=== PATIENT | female | born 1990 | race Caucasian/White ===

== ENCOUNTER 2016-05-07 19:56 | Emergency (ER) | payer OTHER | END 2016-05-08 03:25 | disposition home or self-care (01) | LOC: ER 19:56 | DX: S39.011A Strain of muscle, fascia and tendon of abdomen, initial encounter (principal); S73.101A Unspecified sprain of right hip, initial encounter; M25.531 Pain in right wrist; W10.9XXA Fall (on) (from) unspecified stairs and steps, initial encounter; Y92.009 Unspecified place in unspecified non-institutional (private) residence as the place of occurrence of the external cause; F17.210 Nicotine dependence, cigarettes, uncomplicated; Z79.899 Other long term (current) drug therapy; Z88.0 Allergy status to penicillin | CPT/HCPCS: 73110; 73130; 73502; 99070; 99283 ==

== ENCOUNTER 2016-07-02 11:00 | Emergency (ER) | payer OTHER | END 2016-07-02 11:44 | disposition home or self-care (01) | LOC: ER 11:00 | DX: M19.90 Unspecified osteoarthritis, unspecified site (principal); F41.9 Anxiety disorder, unspecified; F17.210 Nicotine dependence, cigarettes, uncomplicated; M06.9 Rheumatoid arthritis, unspecified; Z79.891 Long term (current) use of opiate analgesic; Z79.899 Other long term (current) drug therapy; Z88.0 Allergy status to penicillin; Z88.8 Allergy status to other drugs, medicaments and biological substances | CPT/HCPCS: 99282 ==

== ENCOUNTER 2016-07-11 15:26 | Emergency (ER) | payer OTHER | END 2016-07-11 16:23 | disposition home or self-care (01) | LOC: ER 15:26 | DX: M25.50 Pain in unspecified joint (principal); M06.9 Rheumatoid arthritis, unspecified; Z90.49 Acquired absence of other specified parts of digestive tract; F17.210 Nicotine dependence, cigarettes, uncomplicated; Z88.0 Allergy status to penicillin; Z79.899 Other long term (current) drug therapy; Z79.1 Long term (current) use of non-steroidal anti-inflammatories (NSAID) | CPT/HCPCS: 96372; 99282-25 ==

== ENCOUNTER 2016-07-29 20:33 | Emergency (ER) | payer OTHER | END 2016-07-29 22:39 | disposition home or self-care (01) | LOC: ER 20:33 | DX: M06.9 Rheumatoid arthritis, unspecified (principal); M25.50 Pain in unspecified joint; Z90.710 Acquired absence of both cervix and uterus; F17.210 Nicotine dependence, cigarettes, uncomplicated; Z88.0 Allergy status to penicillin; Z79.899 Other long term (current) drug therapy | CPT/HCPCS: 93005; 96372; 99070; 99283-25 ==

== ENCOUNTER 2016-07-30 19:19 | Emergency (ER) | payer OTHER | END 2016-07-30 21:15 | disposition home or self-care (01) | LOC: ER 19:19 | DX: M06.9 Rheumatoid arthritis, unspecified (principal); M25.50 Pain in unspecified joint; M51.9 Unspecified thoracic, thoracolumbar and lumbosacral intervertebral disc disorder; Z88.0 Allergy status to penicillin; Z88.8 Allergy status to other drugs, medicaments and biological substances; Z79.899 Other long term (current) drug therapy; Z79.1 Long term (current) use of non-steroidal anti-inflammatories (NSAID) | CPT/HCPCS: 96372; 99282-25 ==